=== PATIENT | female | born 1975 | race Caucasian/White ===

== ENCOUNTER 2016-12-30 16:24 | Emergency (ER) | payer SELFPAY ==
[~2016-12-30] VITALS: Ht 175.3 cm; Wt 61.2 kg
--- NOTE | 2016-12-30 17:01 | Emergency Room Report ---
History of Present Illness General Chief Complaint: Lower Extremity Injury Source: Patient Present Illness HPI The patient is a 41-year-old female presenting for pain after falling. She states that she tripped and fell the left ankle rule underneath her and fell to her knees. She denies hitting her head or loss of consciousness. pain is an 8/ 10 dull ache to the left ankle and both knees. Worse with movement. She denies previous injury to these areas. She denies any numbness or tingling. She denies any other symptoms including nausea, vomiting, fever, chills, headache, dizziness, blurred vision Allergies: Coded Allergies: No Known Allergies (Unverified , 12/30/16) Patient History Past Medical History: see triage record Pertinent Family History: none Reviewed Nursing Documentation: PMH: Agreed, PSxH: Agreed Nursing Documentation-PMH Past Medical History: No Stated History Review of Systems All Other Systems: negative except mentioned in HPI Physical Exam Vital Signs Date Time Temp Pulse Resp B/P (MAP) Pulse Ox O2 Delivery O2 Flow Rate FiO2 12/30/16 16:30 97.9 66 20 111/72 99 Room Air Sp02 EP Interpretation: reviewed, normal General Appearance: no apparent distress, alert, GCS 15, non-toxic Head: normocephalic, atraumatic Eyes: bilateral eye normal inspection, bilateral eye PERRL ENT: hearing grossly normal, normal pharynx, no angioedema, normal voice Neck: full range of motion, supple/symm/no masses Respiratory: chest non-tender, lungs clear, normal breath sounds, speaking full sentences Musculoskeletal: normal range of motion, no calf tenderness, swelling - L ankle , tender - TTP over the L lateral ankle and bilat anterior knees Neurologic: alert, oriented x3, responsive, motor strength/tone normal, sensory intact, speech normal Psychiatric: judgement/insight normal, memory normal, mood/affect normal, no suicidal/homicidal ideation Skin: normal color, no rash, warm/dry, well hydrated Lymphatic: no adenopathy Medical Decision Making PA Attestation Dr. King is my supervising physician. Patient management was discussed with my supervising physician Diagnostic Impression: Primary Impression: Fall Qualified Codes: W19.XXXA - Unspecified fall, initial encounter Additional Impressions: Left ankle sprain Qualified Codes: S93.402A - Sprain of unspecified ligament of left ankle, initial encounter Contusion of knee Qualified Codes: S80.00XA - Contusion of unspecified knee, initial encounter ER Course The patient is a 41-year-old female presenting for pain after falling. Ddx considered include but not limited to sprain/strain, fracture, contusion Physical exam: No apparent distress Musculoskeletal: There is trace to palpation over bilateral anterior knees. No obvious deformity. Normal active range of motion. There is tenderness to palpation with swelling over the left lateral malleolus. Full active range of motion. Normal gait X-rays are all unremarkable. The patient is given Motrin in the ER and states that she is feeling significantly better. She'll be discharged home and will follow up with primary doctor. ER precautions are given Other X-Ray Diagnostic Results Other X-Ray Diagnostic Results #1: X-Ray ordered: L knee # of Views/Limited Vs Complete: 3 View Indication: Pain EP Interpretation: Yes Interpretation: no dislocation, no soft tissue swelling, no fractures Impression: No acute disease Electronically Signed by: ADRIAN Patel Text I have reviewed the L knee xray with my supervising physician and interpretation is that there are no fractures, dislocations or soft tissue swelling. Other X-Ray Diagnostic Results #2: X-Ray ordered: R knee # of Views/Limited Vs Complete: 3 View Indication: Pain EP Interpretation: Yes Interpretation: no dislocation, no soft tissue swelling, no fractures Impression: No acute disease Electronically Signed by: ADRIAN Patel Text I have reviewed the R knee xray with my supervising physician and interpretation is that there are no fractures, dislocations or soft tissue swelling. Other X-Ray Diagnostic Results #3: X-Ray ordered: L ankle # of Views/Limited Vs Complete: 3 View Indication: Pain EP Interpretation: Yes Interpretation: no dislocation, no soft tissue swelling, no fractures Impression: No acute disease Electronically Signed by: ADRIAN Patel I have reviewed the L ankle xray with my supervising physician and interpretation is that there are no fractures, dislocations or soft tissue swelling. Last Vital Signs Date Time Temp Pulse Resp B/P (MAP) Pulse Ox O2 Delivery O2 Flow Rate FiO2 12/30/16 16:30 97.9 66 20 111/72 99 Room Air Status: improved Disposition: HOME, SELF-CARE Condition: Improved Scripts Ibuprofen* (MOTRIN*) 600 Mg Tablet 600 MG ORAL Q8H Y for For Pain, #30 TAB 0 Refills Prov: IAN OSCAR 12/30/16 AIN OSCAR Dec 30, 2016 17:00
[2016-12-30] MEDS ORDERED: IBUPROFEN600 MG ORAL (17:56)
[2016-12-30 18:09] VITALS: BP 111/72
--- NOTE | 2016-12-31 11:04 | Diagnostic Imaging Report ---
Indications: PAIN Technique: Three views of the left knee Comparison: None Findings: No acute fractures. No dislocations. Joint spaces are preserved. No radiopaque foreign body. Normal mineralization. Impression: No acute process
--- NOTE | 2016-12-31 12:38 | Diagnostic Imaging Report ---
Indication: PAIN Technique: 3 views of the right knee Comparison: None Findings:No suprapatellar effusion. No acute fractures or dislocations. Joint spaces are preserved Impression:Negative
--- NOTE | 2016-12-31 12:38 | Diagnostic Imaging Report ---
Is Indication: PAIN Technique: 3 views of the left ankle Comparison: none Findings: No acute fractures. No dislocations. Joint spaces are preserved. Normal mineralization. No radiopaque foreign body. Impression: Negative
--- NOTE | 2016-12-31 12:39 | Diagnostic Imaging Report ---
Indication: PAIN Technique: 3 views left foot Comparison: none Findings: No acute fractures. No dislocations. Joint spaces are preserved. Impression: No acute bony trauma
== END 2016-12-30 18:10 | disposition home or self-care (01) ==
LOC: EMR 18:05
DX: S93.402A Sprain of unspecified ligament of left ankle, initial encounter (principal); S80.02XA Contusion of left knee, initial encounter; S80.01XA Contusion of right knee, initial encounter; W01.0XXA Fall on same level from slipping, tripping and stumbling without subsequent striking against object, initial encounter; Y93.9 Activity, unspecified; Y92.9 Unspecified place or not applicable
CPT/HCPCS: 99284